=== PATIENT | male | born 1985 | race Caucasian/White ===

== ENCOUNTER → 2019-07-06 13:02 | Outpatient (BNVA) | payer OTHER, SELFPAY | PROVIDERS: Family Provider Family Medicine; PCP Family Medicine; Visit Provider Nurse Practitioner Family | DX: R05 Cough (principal) | CPT/HCPCS: 87071; 87400; 87880 ==

== ENCOUNTER → 2019-10-24 13:40 | Outpatient (BNVA) | payer OTHER, SELFPAY | PROVIDERS: Family Provider Family Medicine; PCP Family Medicine; Visit Provider Nurse Practitioner Family | DX: Z11.59 Encounter for screening for other viral diseases (principal) | CPT/HCPCS: 87635 ==

== ENCOUNTER → 2019-10-29 14:20 | Outpatient (BNVA) | payer OTHER, SELFPAY | PROVIDERS: Family Provider Family Medicine; PCP Family Medicine; Visit Provider Nurse Practitioner Family | DX: Z11.59 Encounter for screening for other viral diseases (principal) | CPT/HCPCS: 87635 ==

== ENCOUNTER → 2019-12-26 12:17 | Outpatient (BNVA) | payer OTHER, SELFPAY | PROVIDERS: Family Provider Family Medicine; PCP Family Medicine; Visit Provider Family Medicine | DX: Z11.59 Encounter for screening for other viral diseases (principal) | CPT/HCPCS: 87635 ==

== ENCOUNTER 2020-04-27 04:09 | Emergency (ER) | payer OTHER, SELFPAY ==
[2020-04-27 04:12] VITALS: BP 155/104; PULSE 134; RESP 24; TEMP 36.9; O2SAT 99; BMI 24.3
--- NOTE | 2020-04-27 04:19 | ED_ITS ---
HPI - Nausea/Vomiting/Diarrhea General: Chief complaint: Nausea/Vomiting/Diarrhea Stated complaint: nausea/vomiting/blood in vomit Time Seen by Provider: 04/27/20 04:15 Source: patient Mode of arrival: ambulatory Limitations: no limitations History of Present Illness: HPI Narrative: 35-year-old male states he has a long history of GI issues states started having vomiting and diarrhea tonight. He states he vomited 3-4 times last time he vomited roughly a teaspoon of blood. He has abdominal cramping denies any other pain. Denies any fevers. Denies any worsening or improving factors. Denies any fever or cough. Associated nausea: Yes Associated symtoms: Reports nausea; Denies chest pain, dysuria or headache(s) Review of Systems Const: Denies: fever(s), chills, body aches or change in appetite Eyes: Denies: blurry vision or eye discomfort ENMT: Denies: throat pain or dental pain Card: Denies: chest pain Resp: Denies: dyspnea GI: Reports: nausea, vomiting and hematemesis : Denies: dysuria Musc: Denies: neck pain or back pain Skin/Breast: Denies: rash Neuro: Denies: headache(s) Psych: Denies: depression Elpidio/Lymph: Denies: easy bruising All/Imm: Denies: urticaria PFSH ED PFSH: Medical History (Updated 04/27/20 @ 05:15 by Odalis Ibrahim MD) GERD (gastroesophageal reflux disease) Migraines Surgical History No pertinent past surgical history Family History Other Cancer Social History Smoking and tobacco status: current every day smoker cigarettes Packs smoked per day: 0.5 Alcohol intake: never Physical Exam Const: COMMON NORMALS: no acute distress, patient oriented x3 and healthy appearing HENMT: COMMON NORMALS: normocephalic and atraumatic HEAD & SCALP: normocephalic and atraumatic Eye: COMMON NORMALS: Equal, round and reactive pupils present and EOMs intact bilaterally PUPIL: Yes Equal, round and reactive pupils present Neck/C-Spine: COMMON NORMALS: full ROM and supple Chest: COMMONS NORMALS: normal inspection of the chest and normal palpation of entire chest wall Resp: COMMON NORMALS: normal respiratory effort, No retractions, No use of accessory muscles and clear to auscultation bilaterally AUSCULTATION: clear to auscultation bilaterally Cardio: COMMON NORMALS: regular rate, regular rhythm and No murmurs present (Cardio) RATE: regular rate RHYTHM: regular rhythm GI: COMMON NORMALS: Normal to inspection, nondistended, normoactive bowel sounds present, Soft to palpation, non-tender and no masses PALPATION: Yes Soft to palpation Extremity: COMMON NORMALS: normal to inspection and full ROM Neuro: COMMON NORMALS: patient oriented x3, moves all extremities and no focal motor deficits Psych: COMMON NORMALS: mental status grossly normal, Normal thought process present and cooperative THOUGHT PROCESS: Normal thought process present Skin: COMMON NORMALS: no rashes or lesions noted and no wounds GENERAL SKIN EXAM: no rashes or lesions noted Course Vital Signs: Vital signs: Vital Signs Temperature 98.4 F 04/27/20 04:12 Pulse Rate 80 04/27/20 04:56 Respiratory Rate 19 H 04/27/20 04:56 Blood Pressure 126/97 04/27/20 04:56 Pulse Oximetry 99 04/27/20 04:56 MDM - Nausea/Vomiting/Diarrhea MDM Narrative: Medical decision making narrative: Pernell presents here with vomiting that is chronic in nature. He has had episodes of sounds like cyclical vomiting in the past as well. He did have one episode of vomiting blood but I believe it is likely a minor mildly Kendrick tear. He feels much improved after IV fluids and Zofran and Ativan. His heart rate is improved as well. His blood work is normal. Abdominal exam has no tenderness. He is stable for discharge and is to follow-up his PCP and return if worsening. Lab Data: Labs: Lab Results 04/27/20 04/27/20 Range/Units 04:30 04:30 WBC 8.2 (4.0-10.0) 10^3/ uL RBC 6.02 H (4.1-5.3) 10^6/u L Hgb 17.9 H (11.7-16.6) g/dL Hct 52.8 H (42.0-52.0) % MCV 87.7 (80-94) fL MCH 29.7 (28.0-34.0) pg MCHC 33.9 (30.0-36.0) g/dL RDW 11.7 L (12.1-15.1) % Plt Count 269 (130-400) 10^3/c mm MPV 9.7 (7.4-10.4) fL Neut % (Auto) 54.6 % Lymph % (Auto) 30.9 % [place] % (Auto) 10.9 % Eos % (Auto) 2.8 % Baso % (Auto) 0.4 % Neut # (Auto) 4.47 (1.8-7.7) 10^3/u L Lymph # (Auto) 2.5 (0.8-4.8) 10^3/u L [place] # (Auto) 0.9 (0.2-0.9) 10^3/u L Eos # (Auto) 0.2 (0.0-0.8) 10^3/u L Baso # (Auto) 0.0 (0.0-0.1) 10^3/u L Nucleated RBC % (a uto) 0 % Nucleated RBCs # 0.0 /100WBC Sodium 139 (136-145) mmol/L Potassium 3.7 (3.5-5.1) mmol/L Chloride 102 (98-107) mmol/L Carbon Dioxide 24 (22-29) mmol/L Anion Gap 16.7 (5-19) BUN 15 (6-20) mg/dL Creatinine 1.0 (0.7-1.2) mg/dL GFR Calculation 85.5 L (90-130) mL/min Glucose 113 (65-115) mg/dL Calculated Osmolal ity 290 (285-295) mOsm/k g Calcium 9.8 (8.5-10.5) mg/dL Total Bilirubin 0.4 (0.15-1.2) mg/dL AST 19 (0-40) U/L ALT 40 (0-41) U/L Alkaline Phosphata se 53 (40-130) IU/L Total Protein 10.8 H (6.6-8.7) g/dL Albumin 4.9 (3.5-5.2) g/dL Globulin 5.9 H (1.3-4.6) g/dL Lipase 27 (13-60) U/L Discharge Plan Discharge Patient Disposition: Home Clinical Impression: Vomiting Qualifiers: Vomiting type: unspecified Vomiting Intractability: non-intractable Nausea presence: with nausea Qualified Code(s): R11.2 - Nausea with vomiting, unspecified Condition: Stable Prescriptions: No Action pantoprazole [Protonix] 40 mg tablet,delayed release (DR/EC) 40 mg PO BID Qty: 180 RF: 1 ondansetron 8 mg tablet,disintegrating 8 mg PO Q8H PRN (Reason: nausea and vomiting) Qty: 30 RF: 2 hydrocodone-acetaminophen [[place]] 5-325 mg tablet 1 tab PO Q6H PRN (Reason: pain) 7 Days Qty: 20 RF: 0 Discharge Orders: Discharge ED (Routine); Ordered 04/27/20 Ordered By: Odalis Ibrahim Referrals: Tosin Peters DO [Primary Care Provider] - 1-3 days Discharge Diet: Advance as tolerated Discharge Activity: Resume usual activity Patient Instructions: Acute Nausea and Vomiting (ED) Coding Level of Care Code ED Vendor Representatives for Chg Fwd Exam Comprehensive
[2020-04-27] MEDS: ondansetron 2 mg/ML SDV 2 mL 4 MG IVP (04:32)
[2020-04-27] MEDS: sodium chloride 0.9% 1,000 ML 999 ML IV ×2 (04:32→05:22)
[2020-04-27 04:40] LABS: Basophils % 0.4 %; Eosinophils # 0.2 10^3/uL (0.0-0.8); Eosinophils % 2.8 %; Hematocrit 52.8 % (42.0-52.0); Hemoglobin 17.9 g/dL (11.7-16.6); Lymphocytes # 2.5 10^3/uL (0.8-4.8); Lymphocytes % 30.9 %; Mean Corpuscular HGB Conc 33.9 g/dL (30.0-36.0); Mean Corpuscular Hemoglobin 29.7 pg (28.0-34.0); Mean Corpuscular Volume 87.7 fL (80-94); Mean Platelet Volume 9.7 fL (7.4-10.4); Monocytes # 0.9 10^3/uL (0.2-0.9); Monocytes % 10.9 %; Neutrophils # 4.47 10^3/uL (1.8-7.7); Neutrophils % 54.6 %; Nucleated Red Blood Cells % 0 %; Platelet Count 269 10^3/cmm (130-400); Red Blood Count 6.02 10^6/uL (4.1-5.3); Red Cell Distribution Width 11.7 % (12.1-15.1); White Blood Count 8.2 10^3/uL (4.0-10.0)
[2020-04-27 04:54] VITALS: RESP 18; O2SAT 98
[2020-04-27] MEDS: morphine 4 mg/mL SDV 1 mL IVP (04:54)
[2020-04-27 04:55] LABS: Alanine Aminotransferase 40 U/L (0-41); Albumin Level 4.9 g/dL (3.5-5.2); Alkaline Phosphatase 53 IU/L (40-130); Anion Gap 16.7 (5-19); Aspartate Amino Transferase 19 U/L (0-40); Blood Urea Nitrogen 15 mg/dL (6-20); Calcium 9.8 mg/dL (8.5-10.5); Carbon Dioxide 24 mmol/L (22-29); Chloride 102 mmol/L (98-107); Glomerular Filtration Rate 85.5 mL/min (90-130); Glucose 113 mg/dL (65-115); Lipase 27 U/L (13-60); Osmolality Calculated 290 mOsm/kg (285-295); Potassium 3.7 mmol/L (3.5-5.1); Sodium 139 mmol/L (136-145); Total Bilirubin 0.4 mg/dL (0.15-1.2)
[2020-04-27 04:56] VITALS: BP 126/97; PULSE 80; RESP 19; O2SAT 99
[2020-04-27] MEDS: LORazepam 2 mg/mL INJ 1 mL 1 MG IVP (05:19)
[2020-04-27 06:11] VITALS: BP 143/98; PULSE 97; RESP 18; O2SAT 96
[2020-04-27 15:54] LABS: Total Protein 7.9 g/dL (6.6-8.7)
== END 2020-04-27 06:11 | disposition home or self-care (01) ==
PROVIDERS: Emergency Provider Emergency Medicine; PCP Family Medicine
DX: R11.2 Nausea with vomiting, unspecified (principal); F17.210 Nicotine dependence, cigarettes, uncomplicated; K21.9 Gastro-esophageal reflux disease without esophagitis
CPT/HCPCS: 12345; 80053; 83690; 85025; 96361; 96374; 96375; 99283; J2060; J2270; J2405; J7030

== ENCOUNTER 2020-11-09 15:26 | Outpatient (CLI) | payer OTHER, SELFPAY ==
--- NOTE | 2020-11-09 | CT_ITS ---
WS: [id number] CT HEAD NONCONTRAST HISTORY: Persistent headaches. TECHNIQUE: Contiguous axial imaging performed through the brain in 2.5 mm imaging. Bone and soft tiss ue windows. All CT scans at [facility] use at least one of these dose optimization techniq ues: automated exposure control; mA and/or kV adjustment per patient size (includes targeted exams wh ere dose is matched to clinical indication); or iterative reconstruction. DLP: 1058.18 mGy-cm. COMPARISON: None available. No acute intracranial hemorrhage, midline shift or mass effect. No atrophy or prior infarcts or herniation. Ventricles: Normal size with no hydrocephalus. Paranasal sinuses: As visualized are clear. Mastoid air cells: Well pneumatized. Calvarium and scalp: Skull is intact with no soft tissue edema or swelling. CT/CT head wo con* [id number] IMPRESSION: Negative head CT.
== END 2020-11-09 15:27 | disposition home or self-care (01) ==
PROVIDERS: PCP Family Medicine Adult Medicine; Visit Provider Family Medicine Adult Medicine
DX: G44.52 New daily persistent headache (NDPH) (principal)
CPT/HCPCS: 70450

== ENCOUNTER → 2020-11-24 09:46 | Outpatient (BNVA) | payer OTHER, SELFPAY | PROVIDERS: PCP Family Medicine Adult Medicine; Visit Provider Specialist | DX: G43.709 Chronic migraine without aura, not intractable, without status migrainosus (principal); F17.210 Nicotine dependence, cigarettes, uncomplicated | CPT/HCPCS: 99204 ==

== ENCOUNTER 2022-09-25 23:04 | Emergency (ER) | payer OTHER, SELFPAY ==
[2022-09-25 23:08] VITALS: BP 123/80; PULSE 93; RESP 22; TEMP 36.4; O2SAT 99; BMI 24.5
--- NOTE | 2022-09-26 00:25 | CTR_ITS ---
PROCEDURE INFORMATION: Exam: CT Abdomen And Pelvis Without Contrast Exam date and time: 09/26/2022 12:49 AM Age: 37 years old Clinical indication: Other: Mib back/bilat flank; Patient HX: C/O mid back/bilat flank pain. History of stones. ; Additional info: Mid back pain, HX of stones TECHNIQUE: Imaging protocol: Computed tomography of the abdomen and pelvis without contrast. Radiation optimization: All CT scans at this facility use at least one of these dose optimization techniques: automated exposure control; mA and/or kV adjustment per patient size (includes targeted exams where dose is matched to clinical indication); or iterative reconstruction. REPORTING DATA: Count of CT and Cardiac NM exams in prior 12 months: This patient has received 0 known CTs and 0 known cardiac nuclear medicine studies in the 12 months prior to the current study. COMPARISON: CT Abdomen/Pelvis w IV* [id number] 03/11/2019 10:52 PM RADIATION DOSE METRICS: Total DLP (mGy-cm): 722.77 FINDINGS: Liver: Normal. No mass. Gallbladder and bile ducts: Normal. No calcified stones. No ductal dilation. Pancreas: Normal. No ductal dilation. Spleen: Normal. No splenomegaly. Adrenal glands: Normal. No mass. Kidneys and ureters: Normal. No hydronephrosis. Stomach and bowel: Unremarkable. No obstruction. No mucosal thickening. Appendix: No evidence of appendicitis. Intraperitoneal space: Edema in the central abdominal mesentery with prominent subcentimeter lymph nodes, similar to prior exam may reflect a chronic inflammatory process such as sclerosing mesenteritis. Vasculature: Unremarkable. No abdominal aortic aneurysm. Lymph nodes: Unremarkable. No enlarged lymph nodes. Urinary bladder: Unremarkable as visualized. Reproductive: Unremarkable as visualized. Bones/joints: Unremarkable. No acute fracture. Soft tissues: Unremarkable. Other findings: Bilateral punctate non-obstructing calyceal stones. Bilateral punctate non-obstructing calyceal stones. CT/CT kidney stone [id number] IMPRESSION: 1. Negative for focal acute appearing inflammatory process the abdomen or pelvis. 2. Bilateral punctate non-obstructing calyceal stones. 3. Edema in the central abdominal mesentery with prominent subcentimeter lymph nodes, similar to prior exam may reflect a chronic inflammatory process such as sclerosing mesenteritis. 4. Bilateral punctate non-obstructing calyceal stones.
[2022-09-26 00:40] LABS: Basophils # 0.1 10^3/uL (0.0-0.1); Basophils % 0.6 %; Eosinophils # 0.3 10^3/uL (0.0-0.8); Eosinophils % 3.6 %; Lymphocytes # 2.9 10^3/uL (0.8-4.8); Lymphocytes % 30.2 %; Mean Corpuscular Hemoglobin 29.6 pg (28.0-34.0); Mean Corpuscular Volume 86.9 fl (80-94); Mean Platelet Volume 9.4 fL (7.4-10.4); Monocytes % 10.3 %; Neutrophils # 5.27 10^3/uL (1.8-7.7); Neutrophils % 55.1 %; Nucleated Red Blood Cells % 0 %; Platelet Count 286 10^3/cmm (130-400); Red Blood Count 5.41 10^6/uL (4.1-5.3); Red Cell Distribution Width 11.7 % (12.1-15.1); White Blood Count 9.6 10^3/uL (4.0-10.0)
[2022-09-26 00:44] LABS: Erythrocyte Sedimentation Rate < 1 mm/hr (0-10)
[2022-09-26] MEDS: sodium chloride 0.9% 1,000 ML 999 ML IV (00:45)
[2022-09-26] MEDS: ondansetron 2 mg/ML SDV 2 mL 4 MG IVP (00:48)
[2022-09-26] MEDS: ketorolac 30 mg/mL INJ IVP (00:48)
[2022-09-26 01:01] LABS: Alanine Aminotransferase 36 U/L (0-41); Albumin Level 4.7 g/dL (3.5-5.2); Alkaline Phosphatase 63 U/L (40-130); Anion Gap 15.9 (5-19); Aspartate Amino Transferase 17 U/L (0-40); Blood Urea Nitrogen 13 mg/dL (6-20); Carbon Dioxide 24 mmol/L (22-29); Chloride 102 mmol/L (98-107); Globulin 3.1 g/dL (1.3-4.6); Glomerular Filtration Rate 109.4 mL/min (90-130); Glucose 93 mg/dL (65-115); Lipase 25 U/L (13-60); Osmolality Calculated 286 mOsm/kg (285-295); Potassium 3.9 mmol/L (3.5-5.1); Sodium 138 mmol/L (136-145); Total Bilirubin 0.4 mg/dL (0.15-1.2); Total Protein 7.8 g/dL (6.6-8.7)
[2022-09-26 01:34] LABS: Urine Appearance Hazy (CLEAR); Urine Color Yellow (Yellow)
[2022-09-26 01:35] LABS: Add Urine Microscopic? YES; Bilirubin Urine Neg (Negative); Ketones Urine Negative (Negative); Urobilinogen Urine Norm (Negative)
[2022-09-26] MEDS: cefTRIAXone 1,000 MG in sodium chloride 0.9% (plus) 50 ML 100 MG IV (02:06)
[2022-09-26 02:43] VITALS: BP 126/79; PULSE 68; RESP 14; O2SAT 96
[2022-09-26 02:44] VITALS: BP 126/79; PULSE 68; RESP 14; O2SAT 96
--- NOTE | 2022-09-26 02:52 | ED_ITS ---
HPI - Back Pain/Injury General: Chief Complaint: Back Pain/Injury Stated Complaint: Back pain Time Seen by Provider: 09/26/22 00:49 Source: patient Mode of arrival: ambulatory Limitations: no limitations History of Present Illness: Patient presents emergency department today for evaluation and treatment of sudden, sharp mid back pain. Patient states that while sleeping he was suddenly woken up by severe mid back pain. He reports nausea but no vomiting. He has a history of kidney stones but reports it has been quite sometime since he has had 1. He also notes chronic, recurrent issues with abdominal pain and vomiting for which she has been seen and evaluated multiple times without definitive findings. He reports upper and lower GI scopes where he was diagnosed with reflux. He states he does take Protonix as needed for increased in reflux symptoms. Patient also states he has been ill over the last week or so with flulike illness . He reports that to others at home have had similar illness. He denies dysuria, penile discharge, testicular pain or scrotal swelling. He has not seen any blood in his urine. Review of Systems General: Reports: 10 or more systems reviewed and unremarkable except in HPI and below PFSH ED PFSH: Medical History Anxiety and depression Chronic migraine without aura Contact dermatitis Encounter for screening laboratory testing for COVID-19 virus GERD (gastroesophageal reflux disease) Surgical History No pertinent past surgical history Family History Other Cancer Social History Alcohol intake: never Substance/Drug Use: never Marital status: Number of children: 2 Number of grandchildren: 0 Current occupational status: employed Current occupation: [employer] Physical Exam Const: COMMON NORMALS: patient oriented x3 and alert OTHER: Patient is pleasant and social and answers his own history but is constantly pacing around the room and constantly changing positions in an effort to be more comfortable. HENMT: COMMON NORMALS: normocephalic, atraumatic, hearing grossly normal bilaterally and moist oral mucous membranes HEAD & SCALP: normocephalic and atraumatic Eye: COMMON NORMALS: Equal, round and reactive pupils present, EOMs intact bilaterally and conjunctivae normal CONJUNCTIVA: Yes conjunctivae normal PUPIL: Yes Equal, round and reactive pupils present Neck/C-Spine: COMMON NORMALS: full ROM and no JVD Lymph: LYMPHATIC: no lymphadenopathy noted Resp: COMMON NORMALS: normal respiratory effort, No retractions, No use of accessory muscles and clear to auscultation bilaterally AUSCULTATION: clear to auscultation bilaterally Cardio: COMMON NORMALS: no JVD, regular rate and regular rhythm RATE: regular rate RHYTHM: regular rhythm Back/Pelvis: COMMON NORMALS: no thoracic nor lumbar tenderness and thoraco- lumbar ROM normal OTHER: Patient has midthoracic back pain bilaterally on examination. Extremity: COMMON NORMALS: normal to inspection, full ROM and capillary refill normal Neuro: COMMON NORMALS: patient oriented x3 SENSORIUM/ORIENTATION: Yes alert Psych: COMMON NORMALS: mental status grossly normal, Normal thought process present, cooperative, normal affect and activity/motor behavior normal THOUGHT PROCESS: Normal thought process present Skin: COMMON NORMALS: no rashes or lesions noted and no wounds GENERAL SKIN EXAM: no rashes or lesions noted Course Vital Signs: Vital signs: Vital Signs Temperature 97.6 F 09/25/22 23:08 Pulse Rate 68 09/26/22 02:44 Respiratory Rate 14 09/26/22 02:44 Blood Pressure 126/79 09/26/22 02:44 Pulse Oximetry 96 09/26/22 02:44 Oxygen Delivery Me thod Room Air 09/26/22 02:43 MDM - Back Pain/Injury Medical Decision Making Patient presents to the ER today for what sounds like kidney stone pain. Patient is unable to get comfortable and is constantly moving and changing positions. He is also had nausea but no vomiting. Patient's pain is located to the mid thoracic region bilaterally but has no flank or abdominal pain reported. Lab work was generally unremarkable but we did proceed with a CT for renal stone protocol given his previous history. CT did show renal stones but no active passing stone or signs of hydronephrosis concerning for recent occlusive stone. Patient had findings of edema in the central abdominal mesentery which has appeared in previous evaluations. Radiology does indicate it appears chronic inflammatory and discussed the possibility of a sclerosing mesenteritis. I did discuss this with the patient and he kind of laughed and indicated that he had heard this possibility before. He also reports he has had multiple arik luations for further investigation into this finding without any acute diagnoses. Patient's urinalysis shows a significant amount of bacteria, blood, white blood cells, and nitrites. He also has quite a bit of glucose but no ketones. Patient was treated with a gram of Rocephin IV here in the emergency department with ciprofloxacin provided has a prescription to be picked up and continued in the morning. We will run a urine culture on the specimen for further evaluation. Patient was given strict return precautions for change or worsening in his condition including inability to tolerate fluids, spike in fever, change or worsening of his pain, or any genital symptoms. Patient verbalized understanding and agreement to treatment plan. Differential Diagnosis Likely strain of lumbar region, renal colic, pyelonephritis and thoracic back pain Labs 09/26/22 00:33 09/26/22 00:33 Radiology Impressions Abdomen/Pelvis CT 09/26/22 00:25 IMPRESSION: 1. Negative for focal acute appearing inflammatory process the abdomen or pelvis. 2. Bilateral punctate non-obstructing calyceal stones. 3. Edema in the central abdominal mesentery with prominent subcentimeter lymph nodes, similar to prior exam may reflect a chronic inflammatory process such as sclerosing mesenteritis. 4. Bilateral punctate non-obstructing calyceal stones. ADDENDUM: 09/26/22 0117 Under kidneys and ureters under findings, the text should read bilateral punctate nonobstructing renal calyceal stones. Laboratory Results WBC 9.6 10^3/uL (4.0-10.0) 09/26/22 00:33 RBC 5.41 10^6/uL (4.1-5.3) H 09/26/22 00:33 Hgb 16.0 g/dL (11.7-16.6) 09/26/22 00:33 Hct 47.0 % (42.0-52.0) 09/26/22 00:33 MCV 86.9 fl (80-94) 09/26/22 00:33 MCH 29.6 pg (28.0-34.0) 09/26/22 00: MCHC 34.0 g/dL (30.0-36.0) 09/26/22 00:33 RDW 11.7 % (12.1-15.1) L 09/26/22 00:33 Plt Count 286 10^3/cmm (130-400) 09/26/22 00:33 MPV 9.4 fL (7.4-10.4) 09/26/22 00:33 Neut % (Auto) 55.1 % 09/26/22 00:33 Lymph % (Auto) 30.2 % 09/26/22 00:33 [place] % (Auto) 10.3 % 09/26/22 00:33 Eos % (Auto) 3.6 % 09/26/22 00:33 Baso % (Auto) 0.6 % 09/26/22 00:33 Neut # (Auto) 5.27 10^3/uL (1.8-7.7) 09/26/22 00:33 Lymph # (Auto) 2.9 10^3/uL (0.8-4.8) 09/26/22 00:33 [place] # (Auto) 1.0 10^3/uL (0.2-0.9) H 09/26/22 00:33 Eos # (Auto) 0.3 10^3/uL (0.0-0.8) 09/26/22 00:33 Baso # (Auto) 0.1 10^3/uL (0.0-0.1) 09/26/22 00:33 Nucleated RBC % (auto) 0 % 09/26/22 00: Nucleated RBCs # 0.0 /100WBC 09/26/22 00:33 ESR < 1 mm/hr (0-10) 09/26/22 00:33 Sodium 138 mmol/L (136-145) 09/26/22 00:33 Potassium 3.9 mmol/L (3.5-5.1) 09/26/22 00:33 Chloride 102 mmol/L (98-107) 09/26/22 00:33 Carbon Dioxide 24 mmol/L (22-29) 09/26/22 00:33 Anion Gap 15.9 (5-19) 09/26/22 00:33 BUN 13 mg/dL (6-20) 09/26/22 00:33 Creatinine 0.8 mg/dL (0.7-1.2) 09/26/22 00:33 GFR Calculation 109.4 mL/min (90-130) 09/26/22 00:33 Glucose 93 mg/dL (65-115) 09/26/22 00:33 Calculated Osmolality 286 mOsm/kg (285-295) 09/26/22 00:33 Calcium 10.0 mg/dL (8.5-10.5) 09/26/22 00:33 Total Bilirubin 0.4 mg/dL (0.15-1.2) 09/26/22 00:33 AST 17 U/L (0-40) 09/26/22 00:33 ALT 36 U/L (0-41) 09/26/22 00:33 Alkaline Phosphatase 63 U/L (40-130) 09/26/22 00:33 C-Reactive Protein 3.0 mg/L (0.0-4.9) 09/26/22 00:33 Total Protein 7.8 g/dL (6.6-8.7) 09/26/22 00:33 Albumin 4.7 g/dL (3.5-5.2) 09/26/22 00:33 Globulin 3.1 g/dL (1.3-4.6) 09/26/22 00:33 Lipase 25 U/L (13-60) 09/26/22 00:33 Urine Color Yellow (Yellow) 09/26/22 01:15 Urine Appearance Hazy (CLEAR) A 09/26/22 01:15 Urine pH 6 (5-7) 09/26/22 01:15 Ur Specific [place] 1.010 (1.005-1.030) 09/26/22 01:15 Urine Protein Trace (Negative) 09/26/22 01:15 Urine Glucose (UA) 4+ (Normal) H 09/26/22 01:15 Urine Ketones Negative (Negative) 09/26/22 01:15 Urine Blood 3+ (Negative) H 09/26/22 01:15 Urine Nitrate Positive (Negative) H 09/26/22 01:15 Urine Bilirubin Neg (Negative) 09/26/22 01:15 Urine Urobilinogen Norm mg/dL (Negative) 09/26/22 01:15 Ur Leukocyte Esterase 2+ (Negative) H 09/26/22 01:15 Urine RBC Too numerous to cnt /hpf (0-2) H 09/26/22 01:15 Urine WBC 25-40 /hpf (0-5) H 09/26/22 01:15 Ur Squamous Epith Cells 0-4 /hpf (0-5) H 09/26/22 01:15 Amorphous Sediment Not Reportable 09/26/22 01:15 Urine Bacteria 3+ /hpf (NONE) H 09/26/22 01:15 Discharge Plan Discharge Patient Disposition: Home Clinical Impression: Mid-back pain, acute, Acute UTI (urinary tract infection) Condition: Stable Prescriptions: New Reglan 10 mg tablet 10 mg PO Q6H 7 Days Qty: 28 0RF ciprofloxacin HCl 500 mg tablet 500 mg PO Q12H 7 Days Qty: 14 0RF No Action sertraline 50 mg tablet 50 mg PO DAILY Qty: 30 1RF Rx Instructions: take one each am and if makes sleepy then take it in pm, only one daily topiramate 25 mg tablet 25 mg PO DAILY Qty: 30 1RF acetaminophen [Tylenol] 325 mg tablet 325 mg PO QID PRN ibuprofen 200 mg tablet 200 mg PO Q6H PRN ondansetron 8 mg tablet,disintegrating 8 mg PO Q8H PRN (Reason: nausea and vomiting) Qty: 30 2RF pantoprazole [Protonix] 40 mg tablet,delayed release (DR/EC) 40 mg PO BID Qty: 180 1RF Discharge Orders: Discharge ED (Routine); Ordered 09/26/22 Ordered By: Roxanne Carmona Referrals: Liam Marte MD [Primary Care Provider] - Discharge Diet: Usual diet Activity Restrictions/Additional Instructions: Evaluation today revealed significant findings of infection in your urine. You have a significant amount of blood, white blood cells, bacteria, and nitrites. Incidentally you had quite a bit of glucose in your urine but no ketones. CT examination revealed no active stone disease but you do have retained renal stones bilaterally. There is again findings of upper abdominal haziness in the mesentery and they did mention the possibility for chronic inflammatory disease such as sclerosing mesenteritis. I do recommend reaching out to your primary care doctor to make them aware of this CT evaluation and, recommend you have a repeat of your urinalysis performed after you complete your course of antibiotics to make sure there is been full resolution of all your urinary fin dings. I have also asked that they culture your urine to evaluate for the bacterial cause and to assure proper antibiotic coverage. We provided you a first dose of antibiotics through your IV here in the emergency department and have sent a prescription with you at discharge to be filled in the morning and continued as prescribed. Continue to monitor your symptoms at home and return to the ER for any acute worsening. Coding Level of Care Code ED Casey Saw Operator for Rui Raphael
[2022-09-26 09:40] LABS: pH Urine 6.5 (5-7)
[2022-09-26 09:41] LABS: Blood Urine Neg (Negative); Glucose Urine UA Norm (Normal); Nitrate Urine Negative (Negative); Protein Urine Neg (Negative); Specific Gravity, Urine 1.015 (1.005-1.030)
[2022-09-26 09:42] LABS: Leukocyte Esterase Urine Negative (Negative)
[2022-09-26 09:53] LABS: Bacteria Urine TRACE /hpf
[2022-09-26 09:54] LABS: Add Urine Culture? No
== END 2022-09-26 02:41 | disposition home or self-care (01) ==
PROVIDERS: Emergency Provider Physician Assistant; PCP Family Medicine Adult Medicine
DX: M54.6 Pain in thoracic spine (principal); N39.0 Urinary tract infection, site not specified
CPT/HCPCS: 74176; 80053; 81001; 83690; 85025; 85651; 86140; 96365; 96375; 99285; J0696; J1885; J2405; J7030

== ENCOUNTER → 2022-12-05 10:16 | Outpatient (BNVA) | payer OTHER, SELFPAY | PROVIDERS: PCP Family Medicine Adult Medicine; Visit Provider Registered Nurse Neonatal Intensive Care | DX: J02.9 Acute pharyngitis, unspecified (principal) | CPT/HCPCS: 87880 ==

== ENCOUNTER 2023-05-01 07:40 | Observation (INO) | payer SELFPAY ==
[2023-05-01] VITALS (36 sets, daily range): BP systolic 100–147; BP diastolic 53–110; PULSE 50–150; RESP 13–28; TEMP 36.4–36.9; O2SAT 92–100; BMI 24.3
--- NOTE | 2023-05-01 07:43 | ECG_ITS ---
[facility] Test Date: 2023-05-01 Pat Name: Pernell Dumas Department: Room: Gender: Male [employer] Consultant: : 1985 Requested By: Roel Mustafa Order Number: [id number] [place] MD: Pat Morelos M.D. Measurements Intervals Marshall Rate: 153 P: 209 NE: 81 QRS: 44 QRSD: 92 T: 38 QT: 290 QTc: 463 Interpretive Statements Sinus tachycardia Normal ST Ts Electronically Signed On 05-01-2023 19:27:03 INDUSTRIAL TECHNOLOGY TEACHER by Pat Morelos M.D. [id number]
--- NOTE | 2023-05-01 07:43 | XR_ITS ---
WS: [id number] PORTABLE CHEST HISTORY: Chest pain COMPARISON: 09/03/2017 Lungs are clear and well expanded. No pleural effusion or pneumothorax. Cardiac size: Normal. Mediastinum/Aorta: Normal mediastinum. No osseous abnormality seen. IMPRESSION: Unremarkable portable chest.
--- NOTE | 2023-05-01 07:51 | ED_ITS ---
HPI - Chest Pain 2 General: Chief Complaint: Chest Pain Stated Complaint: chest pains,n,v,dizzy Time Seen by Provider: 05/01/23 07:42 History of Present Illness: 38-year-old male presents emergency depa rtment stating that he woke up at approximately 6 AM this morning with some right-sided chest pain he felt nausea and and had a single episode of vomiting. He states the pain in his chest is a burning type pain he states that he feels like his heart is skipping beats and going extremely fast. He denies alcohol use. Associated symptoms: Reports palpitations Review of Systems 2 General: Reports: 10 or more systems reviewed and unremarkable except in HPI and below Card: Reports: chest pain and palpitations PFS ED 2 PFSH: Medical History (Updated 05/01/23 @ 10:10 by Pee Aj MD) History of kidney stones Anxiety and depression Chronic migraine without aura Encounter for screening laboratory testing for COVID-19 virus Contact dermatitis GERD (gastroesophageal reflux disease) Surgical History No pertinent past surgical history Family History Other Cancer Social History (Updated 05/01/23 @ 10:10 by Pee Aj MD) Smoking and tobacco/nicotine status: current every day tobacco/nicotine user cigarettes Packs smoked per day: 0.5 Alcohol intake: never Substance/Drug Use: never Marital status: Number of children: 2 Number of grandchildren: 0 Current occupational status: employed Current occupation: [employer] Physical Exam 2 Narrative: EXAM NARRATIVE: Constitutional: the patient appears well nourished and with normal development. Vital signs reviewed as documented. HENMT: Normocephalic, atraumatic. External ears normal appearance without drainage. Nose without drainage, normal appearance. Mucus membranes moist. Neck is supple, No jugular venous distension, trachea is midline, no appreciable carotid bruits. No lymphadenopathy. No meningeal signs. Flexion, extension and lateral rotation is without pain. Eyes: Pupils are equal, round, reactive to light and accommodation. No scleral icterus. Extra-ocular movement are intact. Thorax is symmetrical and with equal rise and fall with respirations. Resp: Lungs are clear to auscultation. No wheezes, rales, crackles or ronchi at present. Cardio: Regular rate and rhythm. Positive S1, S2. No appreciable murmurs, rubs or gallops. GI: Abdominal exam reveals normal bowel sounds to all quadrants. No organomegaly. No obvious palpable masses noted. No hepatomegally appreciated. Soft, non-tender to palpation. Extremity: Extremities are non-edematous and both femoral and pedal pulses are 2+ and equal bilaterally. Moves all extremities well, sensation in all extremities. Neuro: Alert and oriented x4, person, place, time and situation. Cranial nerves II through XII are grossly intact, there is no focal neurological deficits that I can appreciate at present. Motor strength in the upper and lower extremities are equal and bilateral 5/5. Psych: Cooperative, calm, normal thought process, appropriate judgment. Skin: No lesions, rashes. No gross abnormalities noted. Back: Symmetrical, no obvious deformity, No CVA tenderness Course 2 Reevaluation(s): Reevaluation #1: Chest pain resolved, currently Cardizem drip at 10 mg/h, blood pressure 133/91 heart rate sinus rhythm at 88 I did advise the patient he would be admitted to the hospital and contacted Dr. Aj the hospital physician who accepted the patient. Time: 10:12 Vital Signs: Vital signs: Vital Signs Temperature 97.5 F L 05/01/23 07:46 Pulse Rate 98 05/01/23 09:30 Respiratory Rate 20 H 05/01/23 07:46 Blood Pressure 132/82 05/01/23 09:30 Pulse Oximetry 95 05/01/23 09:30 Oxygen Delivery Me thod Room Air 05/01/23 09:30 MDM - Chest Pain Medical Decision Making Physical exam completed and documented patient presents with SVT and no history of SVT. He states he also had chest pain. I will obtain a CBC, CMP serial cardiac enzymes and twelve-lead EKG as well as a chest x-ray. I will provide him Cardizem IV push and start him on a Cardizem drip to slow his heart rate down. Given his concerns of a dull burning and tearing sensation to the back I will do a CTA to rule out dissection. Medical Records I reviewed the patient's medical records. Lab Data I reviewed the patient's lab results. 05/01/23 07:55 05/01/23 07:55 Laboratory Results WBC 8.63 10^3/uL (3.29-11.43) 05/01/23 07:55 RBC 5.87 10^6/uL (3.85-5.65) H 05/01/23 07:55 Hgb 18.10 g/dL (11.27-16.99) H 05/01/23 07:55 Hct 50.1 % (37-53) 05/01/23 07:55 MCV 85.3 fl (82-101) 05/01/23 07:55 MCH 30.8 pg (27-33) 05/01/23 07:55 MCHC 36.1 g/dL (30-55) 05/01/23 07:55 RDW 11.9 % (12.1-15.1) L 05/01/23 07:55 Plt Count 285 10^3/cmm (157-399) 05/01/23 07:55 MPV 9.9 fL (7.4-10.4) 05/01/23 07:55 Neut % (Auto) 47.7 % 05/01/23 07:55 Lymph % (Auto) 36.0 % 05/01/23 07:55 [place] % (Auto) 11.6 % 05/01/23 07:55 Eos % (Auto) 3.9 % 05/01/23 07:55 Baso % (Auto) 0.6 % 05/01/23 07:55 Neut # (Auto) 4.11 10^3/uL (1.8-7.7) 05/01/23 07:55 Lymph # (Auto) 3.1 10^3/uL (0.8-4.8) 05/01/23 07:55 [place]ard # (Auto) 1.0 10^3/uL (0.2-0.9) H 05/01/23 07:55 Eos # (Auto) 0.3 10^3/uL (0.0-0.8) 05/01/23 07:55 Baso # (Auto) 0.1 10^3/uL (0.0-0.1) 05/01/23 07:55 Nucleated RBC % (auto) 0 % 05/01/23 07:55 Nucleated RBCs # 0.0 /100WBC 05/01/23 07:55 PT 12.20 SECONDS (12.1-14.9) 05/01/23 07:55 INR 0.88 (0.8-1.2) 05/01/23 07:55 Sodium 137 mmol/L (136-145) 05/01/23 07:55 Potassium 3.6 mmol/L (3.5-5.1) 05/01/23 07:55 Chloride 101 mmol/L (98-107) 05/01/23 07:55 Carbon Dioxide 22 mmol/L (22-29) 05/01/23 07:55 Anion Gap 17.6 (5-19) 05/01/23 07:55 BUN 13 mg/dL (6-20) 05/01/23 07:55 Creatinine 0.9 mg/dL (0.7-1.2) 05/01/23 07:55 GFR Calculation 95.0 mL/min (90-130) 05/01/23 07:55 Glucose 116 mg/dL (65-115) H 05/01/23 07:55 Calculated Osmolality 285 mOsm/kg (285-295) 05/01/23 07:55 Calcium 10.0 mg/dL (8.5-10.5) 05/01/23 07:55 Magnesium 2.0 mg/dL (1.7-2.3) 05/01/23 07:55 Total Bilirubin 0.3 mg/dL (0.15-1.2) 05/01/23 07:55 AST 20 U/L (0-40) 05/01/23 07:55 ALT 40 U/L (0-41) 05/01/23 07:55 Alkaline Phosphatase 76 U/L (40-130) 05/01/23 07:55 Troponin T Baseline < 6 ng/L (0-15) 05/01/23 07:55 NT-Pro-B Natriuret Pep < 36 pg/mL (0-125) 05/01/23 07:55 Total Protein 8.4 g/dL (6.6-8.7) 05/01/23 07:55 Albumin 4.8 g/dL (3.5-5.2) 05/01/23 07:55 Globulin 3.6 g/dL (1.3-4.6) 05/01/23 07:55 TSH 2.29 uIU/mL (0.27-4.20) 05/01/23 07:55 Urine Color Straw (Yellow) 05/01/23 09:32 Urine Appearance Clear (CLEAR) 05/01/23 09:32 Urine pH 6.5 (5-7) 05/01/23 09:32 Ur Specific [place] 1.010 (1.005-1.030) 05/01/23 09:32 Urine Protein Neg (Negative) 05/01/23 09:32 Urine Glucose (UA) Norm (Normal) 05/01/23 09:32 Urine Ketones Negative (Negative) 05/01/23 09:32 Urine Blood Neg (Negative) 05/01/23 09:32 Urine Nitrate Negative (Negative) 05/01/23 09:32 Urine Bilirubin Neg (Negative) 05/01/23 09:32 Urine Urobilinogen Neg mg/dL (Negative) 05/01/23 09:32 Ur Leukocyte Esterase Negative (Negative) 05/01/23 09:32 Urine Opiates Screen Negative ng/mL (Negative) 05/01/23 09:32 Ur Barbiturates Screen Negative ng/mL (Negative) 05/01/23 09:32 Ur Phencyclidine Scrn Negative ng/mL (Negative) 05/01/23 09:32 Ur Amphetamines Screen Negative ng/mL (Negative) 05/01/23 09:32 U Benzodiazepines Scrn Negative ng/mL (Negative) 05/01/23 09:32 Urine Cocaine Screen Negative ng/mL (Negative) 05/01/23 09:32 U Marijuana (THC) Screen Positive ng/mL (Negative) H 05/01/23 09:32 Influenza Type A Ag negative (Negative) 05/01/23 08:07 Influenza Type B Ag negative (Negative) 05/01/23 08:07 SARS-CoV-2 Ag (Rapid) negative (Negative) 05/01/23 08:07 All radiology interpretation(s) finalized by discharge EKG Data EKG 1: Interpretation: Twelve-lead EKG obtained at 745 and reviewed at 746 demonstrates supraventricular tachycardia with a ventricular rate of 153 bpm, OH interval 81, QRS duration 92, QT 290, QTc [address] elevation or depression at present to demonstrate acute ischemia or infarction. EKG 2: Interpretation: Repeat twelve-lead EKG at 938 demonstrates sinus rhythm with a ventricular rate of 91 bpm, OH interval 168, QRS duration 93, QT 334, QTc 382. There is no ST elevation or depression at present to demonstrate acute ischemia or infarction. Critical Care Time 2 Critical Care Time: Critical Care Time: Yes Total Critical Care Time: 45 Attestation: The patients was emergently evaluated as this patient's presentation and case had a high probability of a clinically significant, sudden, or life threatening deterioration of this patient's initial critical presentation or condition which required my full and direct attention, intervention and personal management. Discharge Plan Discharge Patient Disposition: Admitted As Inpatient Admit Provider: Pee Aj Clinical Impression: Sustained SVT, Chest pain Condition: Stable Coding Level of Care Code ED Powertrain Design Engineer for Rui Raphael
[2023-05-01] MEDS: dilTIAZem 5 mg/mL SDV 5 mL 20 MG IVP (07:57)
[2023-05-01] MEDS: aspirin 81 mg Chew Tablet 324 MG PO (07:59)
[2023-05-01 08:04] LABS: Basophils # 0.1 10^3/uL (0.0-0.1); Basophils % 0.6 %; Eosinophils # 0.3 10^3/uL (0.0-0.8); Eosinophils % 3.9 %; Hematocrit 50.1 % (37-53); Lymphocytes # 3.1 10^3/uL (0.8-4.8); Mean Corpuscular HGB Conc 36.1 g/dL (30-55); Mean Corpuscular Hemoglobin 30.8 pg (27-33); Mean Corpuscular Volume 85.3 fl (82-101); Mean Platelet Volume 9.9 fL (7.4-10.4); Monocytes % 11.6 %; Neutrophils # 4.11 10^3/uL (1.8-7.7); Neutrophils % 47.7 %; Nucleated Red Blood Cells % 0 %; Platelet Count 285 10^3/cmm (157-399); Red Blood Count 5.87 10^6/uL (3.85-5.65); Red Cell Distribution Width 11.9 % (12.1-15.1); White Blood Count 8.63 10^3/uL (3.29-11.43)
--- NOTE | 2023-05-01 08:05 | PC.NURSE ---
PT HOOKED UP TO CONTINUOUS BEDSIDE CARDIAC MONITORING.
[2023-05-01 08:14] LABS: INR 0.88 (0.8-1.2)
[2023-05-01 08:22] LABS: Troponin(5th) Baseline < 6 ng/L (0-15)
--- NOTE | 2023-05-01 08:28 | CT_ITS ---
WS: [id number] CT CHEST ANGIOGRAPHY WITH REFORMATS HISTORY: taachycardia/tearing chest pain TECHNIQUE: Contiguous axial images are obtained through the chest during arterial injection of intrav enous contrast. Images are reconstructed to evaluate the pulmonary arteries. MIP imaging also reviewe d. All CT scans at [facility] use at least one of these dose optimization techniques: automat ed exposure control; mA and/or kV adjustment per patient size (includes targeted exams where dose is matched to clinical indication); or iterative reconstruction. CONTRAST: Omnipaque 350; 57 mL IV. DLP: 438.04 mGy.cm COMPARISON: None available. Adequate opacification of the pulmonary arteries. No filling defects or pulmonary emboli are identifi ed. Partial opacification of the thoracic aorta. No dissection is evident on this examination. Contra st opacification does limit evaluation for subtle dissection. There is no aneurysm. No para-aortic he matoma. Normal appearance of the great vessels. Heart size is normal. No RIGHT heart strain. No pericardial or pleural effusions. No mediastinal or h ilar adenopathy. There is mild hazy attenuation throughout the lungs. In part this may be due to poor inspiration. There does appear to be mild tree-in-bud airspace disease diffusely and bilaterally. No consolidations. No pericardial or pleural effusions. No adrenal mass. Visualize gallbladder and spleen and liver are negative. No significant hiatal herni a. There are a few minimal compression fractures in the thoracic spine including T3, T4 and T5. IMPRESSION: 1. No pulmonary embolism. 2. Limited opacification of the thoracic aorta but no dissection or aneurysm or periaortic hematoma is identified. 3. There is mild diffuse groundglass attenuation and tree-in-bud airspace disease. Consider respirat ory bronchiolitis/pneumonitis. These may changes can be seen with smoking history or endobronchial pn eumonia. 4. No adenopathy.
[2023-05-01 08:29] LABS: Alanine Aminotransferase 40 U/L (0-41); Albumin Level 4.8 g/dL (3.5-5.2); Alkaline Phosphatase 76 U/L (40-130); Blood Urea Nitrogen 13 mg/dL (6-20); Carbon Dioxide 22 mmol/L (22-29); Chloride 101 mmol/L (98-107); Globulin 3.6 g/dL (1.3-4.6); Glucose 116 mg/dL (65-115); NT Pro B Type Natriuretic Pept < 36 pg/mL (0-125); Osmolality Calculated 285 mOsm/kg (285-295); Sodium 137 mmol/L (136-145); Total Bilirubin 0.3 mg/dL (0.15-1.2); Total Protein 8.4 g/dL (6.6-8.7)
[2023-05-01 08:31] LABS: Anion Gap 17.6 (5-19); Aspartate Amino Transferase 20 U/L (0-40); Potassium 3.6 mmol/L (3.5-5.1)
[2023-05-01 08:32] LABS: Influenza A by IFA negative (Negative); Influenza B by IFA negative (Negative); SARS Covid-2 Antigen negative (Negative)
[2023-05-01] MEDS: iohexol 350 mg/mL 500 mL Btl (per mL) IV (08:45)
--- NOTE | 2023-05-01 08:45 | PC.NURSE ---
PER DR ALEXANDRA, TARGET HEART RATE FOR CARDIZEM DRIP IS BELOW 100BPM.
[2023-05-01] MEDS: dilTIAZem 100 MG in sodium chloride 0.9% (add-van) 100 ML IV (08:49)
--- NOTE | 2023-05-01 09:15 | PC.PHAR ---
pt states he takes care of his own medications-pt states only takes protonix 40mg bid prn states he had a build up -states not taking any otc medications
[2023-05-01] MEDS: ondansetron 2 mg/ML SDV 2 mL 4 MG IVP (09:29)
--- NOTE | 2023-05-01 09:38 | ECG_ITS ---
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 Measurements Intervals [place] Rate: 91 P: 37 [place]: 168 QRS: 32 QRSD: 93 T: 47 QT: 334 QTc: 411 Interpretive Statements SINUS RHYTHM Compared to ECG 05/01/2023 07:45:14 No significant changes Electronically Signed On 05-01-2023 19:34:26 PLOW AND BORING MACHINE TENDER by Pat Morelos M.D. [id number]
[2023-05-01 09:44] LABS: Add Urine Microscopic? NO; Charge for UA Resulting for Rev
[2023-05-01 09:59] LABS: Bilirubin Urine Neg (Negative); Blood Urine Neg (Negative); Glucose Urine UA Norm (Normal); Ketones Urine Negative (Negative); Leukocyte Esterase Urine Negative (Negative); Nitrate Urine Negative (Negative); Protein Urine Neg (Negative); Urine Appearance Clear (CLEAR); Urine Color Straw (Yellow); Urobilinogen Urine Neg (Negative); pH Urine 6.5 (5-7)
[2023-05-01 10:05] LABS: Amphetamines Screen Urine Negative (Negative); Barbiturates Screen Urine Negative (Negative); Benzodiazepines Screen Urine Negative (Negative); Cocaine Screen Urine Negative (Negative); Opiate Screen Urine Negative (Negative); PCP Screen Urine Negative (Negative); THC Screen Urine Positive (Negative)
[2023-05-01 10:07] LABS: Thyroid Stimulating Hormone 2.29 uIU/mL (0.27-4.20)
--- NOTE | 2023-05-01 10:07 | P.HP_ITS ---
Providers/Chief Complaint 2 Admitting Physician: Pee Aj MD Primary Care Provider: Liam Marte MD Chief Complaint: chest pains,n,v,dizzy History of Present Illness Pernell Dumas is a 38 year old male patient presenting with complaints of chest discomfort, mainly sharp and radiating to his back. He does not know if this woke him from sleep, or he had it upon awakening. He reports he does not believe he has had this type of discomfort before. It was associated with dizziness which he reports he might have had intermittently over the last 2 days. He denies any shortness of breath. This morning he was nauseous as well. No other recent illnesses, fever, cough, blood in stool. Denies any drug use. Reports no prior history of SVT or atrial arrhythmia. Denies any alcohol use. Review of Systems 2 General: Reports: 10 or more systems reviewed and unremarkable except in HPI and below Card: Reports: chest pain Resp: Denies: dyspnea GI: Reports: nausea; Denies: abdominal pain, hematochezia or melena Medications/Allergies Home Medications Medication Instructions Recorded Confirmed Last Taken Type pantoprazole 40 mg tablet,delayed 40 mg PO BID PRN Heartburn 05/01/23 05/01/23 Unknown History release (Protonix) Allergies Allergy/AdvReac Type Severity Reaction Status Date / Time sumatriptan [From Imitrex] AdvReac Mild lock jaw Verified 05/01/23 09:16 PFSH Acute 2 PFSH: Medical History (Updated 05/01/23 @ 10:10 by Pee Aj MD) History of kidney stones Anxiety and depression Chronic migraine without aura Encounter for screening laboratory testing for COVID-19 virus Contact dermatitis GERD (gastroesophageal reflux disease) Surgical History No pertinent past surgical history Family History Other Cancer Social History (Updated 05/01/23 @ 10:10 by Pee Aj MD) Smoking and tobacco/nicotine status: current every day tobacco/nicotine user cigarettes Packs smoked per day: 0.5 Alcohol intake: never Substance/Drug Use: never Marital status: Number of children: 2 Number of grandchildren: 0 Current occupational status: employed Current occupation: [employer] Vitals/I&O/Wt Last Vital Signs Temp 97.5 F L 05/01/23 07:46 Pulse 98 05/01/23 09:30 Resp 20 H 05/01/23 07:46 BP 132/82 05/01/23 09:30 Pulse Ox 95 05/01/23 09:30 O2 Del Method Room Air 05/01/23 09:30 04/30/23 05/01/23 05/01/23 22:59 06:59 14:59 Intake Total 7.542 / 7.542 Balance 7.542 / 7.542 Weight last 48 hrs Weight 88.451 kg Physical Exam 2 Narrative: General exam is white male, in no apparent distress, currently on a Cardizem drip with a heart rate of approximately 100 HEENT: Atraumatic normocephalic. Oropharynx clear. Neck is supple no lymphadenopathy thyromegaly Cardiovascular borderline tachycardic, no murmur, no obvious S3 or S4 Lungs clear Abdomen is soft, no obvious organomegaly. Positive bowel sounds exam is deferred Extremities no sinus clubbing edema, cap refill brisk Skin no rash Neuro no obvious focal deficits Data 05/01/23 07:55 05/01/23 07:55 Other Labs: I have ordered a TSH, and magnesium level INR was normal LFTs normal Troponin less than 6 with repeat pending Urinalysis negative Urine drug screen positive for THC Influenza and COVID testing negative, COVID was by rapid Chest x-ray per my read no infiltrate CTA demonstrated no pulmonary embolism, some diffuse groundglass attenuation Initial EKG demonstrated a rate of 150, atrial tachycardia. It is hard to delineate if this could represent atrial flutter versus SVT. Graham is normal. Nonspecific ST-T wave changes. This is per my read. Second EKG demonstrates sinus rhythm, normal axis. I ordered a TSH and magnesium level which are now done and normal A&P Assessment and plan (1) Sustained SVT: Presentation is most consistent with SVT with EKG carotids, symptomatology. There is no need for any chronic anticoagulation in this patient with his current risk factors. Initiate metoprolol 25 mg now and 25 mg twice daily Echocardiogram Observation Will try to wean off Cardizem drip. If no recurrence consider early discharge after workup is complete. (2) Chest pain: Appears to be secondary to above Awaiting repeat troponins CTA negative for PE (3) Nicotine dependence, cigarettes, with unspecified nicotine-induced disorders: Encourage abstinence Plan Other medical problems as outlined by past medical history Full code Low risk, no need for any anticoagulation Attestations 2 Medical Necessity Statement*: Will need less than 2 midnight stay for evaluation and treatment of SVT Diagnoses Sustained SVT I47.10 Chest pain R07.9 Nicotine dependence, cigarettes, with unspecified nicotine-induced disorders F17.219 Time Spent (min) 48
--- NOTE | 2023-05-01 10:07 | USCV_ITS ---
Pernell Dumas Age: 38 Gender: M : 1985 Exam Date: 05/01/2023 13:32 Ordering Phys: Pee Aj MD Technologist: CT Exam Location: [facility] [place] Indication: arrhythmia BP: 100 / 72 HR: 61 Rhythm: Sinus Technical Quality: Adequate MEASUREMENTS (Male / Female) Normal Values 2D ECHO LVOT Diameter 2.1 cm LV Ejection Fraction MOD 2C 70.3 % LV Ejection Fraction 2C AL 69.5 % LA Diameter 4.2 cm Aorta at Sinotubular Diameter 2.3 cm M-MODE Aortic Annulus Diameter 3.6 cm LA Ao Ratio MM 1.4 MV E Point Septal Separation 0.5 cm DOPPLER AV Peak Velocity 120.0 cm/s LVOT Peak Velocity 97.0 cm/s AV Area Cont Eq vti 3.5 cm squared AV Area Cont Eq pk 2.9 cm squared MV E' Velocity 15.0 cm/s TR Peak Velocity 208.0 cm/s TR Peak Gradient 17.3 mmHg TV Peak E Velocity 78.0 cm/s Right Atrial Pressure 3.0 mmHg Pulmonary Artery Systolic Pressu 20.3 mmHg PV Peak Velocity 103.0 cm/s FINDINGS Left Ventricle Left ventricle is normal in size. LV systolic function is normal with EF of 60-65%. No regional wall abnormalities are seen. Right Ventricle Normal in size and function Right Atrium Normal in size Left Atrium Normal in size Mitral Valve Structurally normal mitral valve. Trace mitral regurgitation. Aortic Valve Structurally normal aortic valve. No significant stenosis or regurgitation. Tricuspid Valve Mild tricuspid regurgitation. Insufficient TR jet to calculate RVSP Pulmonic Valve Not well visualized Pericardium Normal Aorta Normal in size IVC Appears to be normal CONCLUSIONS LV systolic function is normal with EF of 60-65% Trace mitral regurgitation Mild tricuspid regurgitation No comparison studies are available. Aleksey Chandra MD (Electronically Signed) Final Date: 01 May 2023 17:43 S
[2023-05-01 10:17] LABS: Troponin 5 2HR Delta 0.00001 ABS# (0-10)
--- NOTE | 2023-05-01 10:30 | PC.NURSE ---
Pt arrived from A,Ox4. SR on monitor HR-upper 60s. Cardizem drip running at 12.5 mg/hr...
[2023-05-01] MEDS: metoprolol tartrate 25 mg Tablet PO (10:36)
[2023-05-01] MEDS: nicotine 21 mg Patch 1 PATCH TRANSDERMA (11:40)
--- NOTE | 2023-05-01 13:43 | ECG_ITS ---
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 Measurements Intervals [place] Rate: 57 P: 32 AL: 190 QRS: 42 QRSD: 83 T: 41 QT: 364 QTc: 357 Interpretive Statements SINUS BRADYCARDIA Compared to ECG 05/01/2023 09:38:49 Sinus rhythm no longer present Electronically Signed On 05-01-2023 19:37:38 PLASTICS REPAIRER by Pat Morelos M.D. [id number]
[2023-05-01 14:16] LABS: Troponin 5 6HR 6.74 ng/L (0-15); Troponin 5 6HR Delta 0.74001 ng/L (0-12)
[2023-05-01] MEDS: acetaminophen 325 mg Tablet 650 MG PO ×2 (14:19→19:35)
--- NOTE | 2023-05-01 22:04 | PC.NURSE ---
Spoke with regarding patient due for dose of metoprolol 25 mg tonight but hr is running in 50s BP 110/65. Patient states he is just feeling off and says his HR usually runs in 80s so nurse is concerned he may feel strange due to the Bradycardia. said to hold tonights dose of metoprolol.
[2023-05-02] VITALS: TEMP 36.4
[2023-05-02 02:53] VITALS: BP 108/69; PULSE 54; RESP 17; O2SAT 97
[2023-05-02 03:20] VITALS: BP 109/66; PULSE 64; RESP 16; TEMP 36.4; O2SAT 97
[2023-05-02 05:35] VITALS: PULSE 54
[2023-05-02 06:43] LABS: Anion Gap 14.9 (5-19); Blood Urea Nitrogen 10 mg/dL (6-20); Calcium 9.2 mg/dL (8.5-10.5); Carbon Dioxide 23 mmol/L (22-29); Chloride 105 mmol/L (98-107); Glomerular Filtration Rate 108.8 mL/min (90-130); Glucose 86 mg/dL (65-115); Osmolality Calculated 286 mOsm/kg (285-295); Potassium 3.9 mmol/L (3.5-5.1); Sodium 139 mmol/L (136-145)
[2023-05-02 07:42] VITALS: BP 119/72; PULSE 76; RESP 16; TEMP 36.6; O2SAT 98
[2023-05-02 08:04] VITALS: BP 119/72; PULSE 74; RESP 14; TEMP 36.6; O2SAT 98
[2023-05-02] MEDS: nicotine 21 mg Patch 1 PATCH TRANSDERMA (08:32)
[2023-05-02] MEDS: metoprolol succinate ER (24 HR) 25 mg Tablet PO (08:32)
--- NOTE | 2023-05-02 08:34 | P.DS_ITS ---
Discharge Providers Date of Admission: 05/01/23 09:39 Date of Discharge: May 02, 2023 Attending Provider at Admission: Pee Aj MD Attending Provider at Discharge: Pee Aj MD Primary Care Provider: Liam Marte MD Diagnoses at Discharge Discharge Diagnosis (1) Sustained SVT: Status: Acute (2) Chest pain: Status: Acute (3) Nicotine dependence, cigarettes, with unspecified nicotine-induced disorders: Status: Chronic Reason for Visit Reason for Visit: chest pains,n,v,dizzy Discharge Data Studies Completed and Pending Completed Studies During Hospitalization Category Date Time Status CTA chest [CT angio chest PE protcl [id number]] Stat Cat Scan 05/01/23 08:28 Completed XR chest 1V portable [id number] Stat Exams 05/01/23 07:43 Completed CV. echo complete* [id number] Routine Ultrasound 05/01/23 10:07 Completed Laboratory Results WBC 8.63 10^3/uL (3.29-11.43) 05/01/23 07:55 RBC 5.87 10^6/uL (3.85-5.65) H 05/01/23 07:55 Hgb 18.10 g/dL (11.27-16.99) H 05/01/23 07:55 Hct 50.1 % (37-53) 05/01/23 07:55 MCV 85.3 fl (82-101) 05/01/23 07:55 MCH 30.8 pg (27-33) 05/01/23 07:55 MCHC 36.1 g/dL (30-55) 05/01/23 07:55 RDW 11.9 % (12.1-15.1) L 05/01/23 07:55 Plt Count 285 10^3/cmm (157-399) 05/01/23 07:55 MPV 9.9 fL (7.4-10.4) 05/01/23 07:55 Neut % (Auto) 47.7 % 05/01/23 07:55 Lymph % (Auto) 36.0 % 05/01/23 07:55 [place] % (Auto) 11.6 % 05/01/23 07:55 Eos % (Auto) 3.9 % 05/01/23 07:55 Baso % (Auto) 0.6 % 05/01/23 07:55 Neut # (Auto) 4.11 10^3/uL (1.8-7.7) 05/01/23 07:55 Lymph # (Auto) 3.1 10^3/uL (0.8-4.8) 05/01/23 07:55 [place] # (Auto) 1.0 10^3/uL (0.2-0.9) H 05/01/23 07:55 Eos # (Auto) 0.3 10^3/uL (0.0-0.8) 05/01/23 07:55 Baso # (Auto) 0.1 10^3/uL (0.0-0.1) 05/01/23 07:55 Nucleated RBC % (auto) 0 % 05/01/23 07:55 Nucleated RBCs # 0.0 /100WBC 05/01/23 07:55 PT 12.20 SECONDS (12.1-14.9) 05/01/23 07:55 INR 0.88 (0.8-1.2) 05/01/23 07:55 Sodium 139 mmol/L (136-145) 05/02/23 05:19 Potassium 3.9 mmol/L (3.5-5.1) 05/02/23 05:19 Chloride 105 mmol/L (98-107) 05/02/23 05:19 Carbon Dioxide 23 mmol/L (22-29) 05/02/23 05:19 Anion Gap 14.9 (5-19) 05/02/23 05:19 BUN 10 mg/dL (6-20) 05/02/23 05:19 Creatinine 0.8 mg/dL (0.7-1.2) 05/02/23 05:19 GFR Calculation 108.8 mL/min (90-130) 05/02/23 05:19 Glucose 86 mg/dL (65-115) 05/02/23 05:19 Calculated Osmolality 286 mOsm/kg (285-295) 05/02/23 05:19 Calcium 9.2 mg/dL (8.5-10.5) 05/02/23 05:19 Magnesium 2.0 mg/dL (1.7-2.3) 05/01/23 07:55 Total Bilirubin 0.3 mg/dL (0.15-1.2) 05/01/23 07:55 AST 20 U/L (0-40) 05/01/23 07:55 ALT 40 U/L (0-41) 05/01/23 07:55 Alkaline Phosphatase 76 U/L (40-130) 05/01/23 07:55 Troponin T Baseline < 6 ng/L (0-15) 05/01/23 07:55 Troponin T 120 Minute 6.00 ng/L (0-15) 05/01/23 09:50 Delta Troponin T 0.14712 ABS# (0-10) 05/01/23 09:50 Troponin T Hi Sens 6Hr 6.74 ng/L (0-15) 05/01/23 13:42 Troponin T Hi Sens 6Hr Delta 0.74435 ng/L (0-12) 05/01/23 13:42 NT-Pro-B Natriuret Pep < 36 pg/mL (0-125) 05/01/23 07:55 Total Protein 8.4 g/dL (6.6-8.7) 05/01/23 07:55 Albumin 4.8 g/dL (3.5-5.2) 05/01/23 07:55 Globulin 3.6 g/dL (1.3-4.6) 05/01/23 07:55 TSH 2.29 uIU/mL (0.27-4.20) 05/01/23 07:55 Urine Color Straw (Yellow) 05/01/23 09:32 Urine Appearance Clear (CLEAR) 05/01/23 09:32 Urine pH 6.5 (5-7) 05/01/23 09:32 Ur Specific [place] 1.010 (1.005-1.030) 05/01/23 09:32 Urine Protein Neg (Negative) 05/01/23 09:32 Urine Glucose (UA) Norm (Normal) 05/01/23 09:32 Urine Ketones Negative (Negative) 05/01/23 09:32 Urine Blood Neg (Negative) 05/01/23 09:32 Urine Nitrate Negative (Negative) 05/01/23 09:32 Urine Bilirubin Neg (Negative) 05/01/23 09:32 Urine Urobilinogen Neg mg/dL (Negative) 05/01/23 09:32 Ur Leukocyte Esterase Negative (Negative) 05/01/23 09:32 Urine Opiates Screen Negative ng/mL (Negative) 05/01/23 09:32 Ur Barbiturates Screen Negative ng/mL (Negative) 05/01/23 09:32 Ur Phencyclidine Scrn Negative ng/mL (Negative) 05/01/23 09:32 Ur Amphetamines Screen Negative ng/mL (Negative) 05/01/23 09:32 U Benzodiazepines Scrn Negative ng/mL (Negative) 05/01/23 09:32 Urine Cocaine Screen Negative ng/mL (Negative) 05/01/23 09:32 U Marijuana (THC) Screen Positive ng/mL (Negative) H 05/01/23 09:32 Influenza Type A Ag negative (Negative) 05/01/23 08:07 Influenza Type B Ag negative (Negative) 05/01/23 08:07 SARS-CoV-2 Ag (Rapid) negative (Negative) 05/01/23 08:07 Vitals Last Vital Signs Temp 97.8 F 05/02/23 08:04 Pulse 74 05/02/23 08:04 Resp 14 05/02/23 08:04 BP 119/72 05/02/23 08:04 Pulse Ox 98 05/02/23 08:04 O2 Del Method Room Air 05/02/23 07:42 Discharge Plan Discharge Patient Disposition: Home Condition: Stable Prescriptions: New metoprolol succinate 25 mg Tablet Extended Release 24 Hr 25 mg PO DAILY Qty: 30 0RF Continued Protonix 40 mg tablet,delayed release (DR/EC) 40 mg PO BID PRN (Reason: Heartburn) Discharge Orders: Discharge Order (Routine); Ordered 05/02/23 Ordered By: Pee Aj Referrals: Liam Marte MD [Primary Care Provider] - 4-7 days Discharge Diet: Regular Discharge Activity: Increase activity as tolerated Patient Instructions: Opioid Safety Activity Restrictions/Additional Instructions: Fluids Take medicine as prescribed Stop smoking Arrange follow-up with cardiology clinic in approximately 2 weeks Return for any concerns Coding Level of Care Code Acute Code for Chg Fwd Diagnoses Sustained SVT I47.10 Chest pain R07.9 Nicotine dependence, cigarettes, with unspecified nicotine-induced disorders F17.219
--- NOTE | 2023-05-02 08:56 | PC.NURSE ---
Pt ambulating x2 down hallways HR on telemetry while walking maintains between upper 60s to 70s, SR.. Pt denies any dizziness, minimal lightheadedness.
--- NOTE | 2023-05-02 09:20 | PM.DCS ---
Discharge Providers Date of Admission: 05/01/23 09:39 Date of Discharge: May 02, 2023 Attending Provider at Admission: Pee Aj MD Attending Provider at Discharge: Pee Aj MD Primary Care Provider: Liam Marte MD Diagnoses at Discharge Discharge Diagnosis (1) Sustained SVT: Status: Acute (2) Chest pain: Status: Acute (3) Nicotine dependence, cigarettes, with unspecified nicotine-induced disorders: Status: Chronic Reason for Visit Reason for Visit: chest pains,n,v,dizzy Hospital Course Hospital Course Pernell is a 38-year-old white male with no prior history of cardiac arrhythmia presented to the emergency department with palpitations, elevated heart rate consistent with SVT on EKG. He was started on a Cardizem drip, and transition to metoprolol. With this the heart rate came down he was able to wean off Cardizem, and he came into sinus rhythm. Overnight he was observed and was slightly bradycardic and Toprol dose was changed to 25 mg XL daily. Blood pressure was within normal limits. Troponins were negative. Echocardiogram demonstrated preserved EF, no significant wall motion abnormalities. TSH and electrolytes were normal. CTA done in the emergency department demonstrated no evidence of pulmonary embolism. With significant improvement, it was thought the patient could be discharged home with follow-up with cardiology and his primary care provider. He was able to ask questions and agreed with plan. Physical Exam Narrative: General exam no distress Neck is supple Cardiovascular regular rate and rhythm without murmur Lungs clear Abdomen is soft Extremities no cyanosis clubbing or edema, cap refill brisk Discharge Data Studies Completed and Pending Completed Studies During Hospitalization Category Date Time Status CTA chest [CT angio chest PE protcl [id number]] Stat Cat Scan 05/01/23 08:28 Completed XR chest 1V portable [id number] Stat Exams 05/01/23 07:43 Completed CV. echo complete* [id number] Routine Ultrasound 05/01/23 10:07 Completed Laboratory Results WBC 8.63 10^3/uL (3.29-11.43) 05/01/23 07:55 RBC 5.87 10^6/uL (3.85-5.65) H 05/01/23 07:55 Hgb 18.10 g/dL (11.27-16.99) H 05/01/23 07:55 Hct 50.1 % (37-53) 05/01/23 07:55 MCV 85.3 fl (82-101) 05/01/23 07:55 MCH 30.8 pg (27-33) 05/01/23 07:55 MCHC 36.1 g/dL (30-55) 05/01/23 07:55 RDW 11.9 % (12.1-15.1) L 05/01/23 07:55 Plt Count 285 10^3/cmm (157-399) 05/01/23 07:55 MPV 9.9 fL (7.4-10.4) 05/01/23 07:55 Neut % (Auto) 47.7 % 05/01/23 07:55 Lymph % (Auto) 36.0 % 05/01/23 07:55 [place] % (Auto) 11.6 % 05/01/23 07:55 Eos % (Auto) 3.9 % 05/01/23 07:55 Baso % (Auto) 0.6 % 05/01/23 07:55 Neut # (Auto) 4.11 10^3/uL (1.8-7.7) 05/01/23 07:55 Lymph # (Auto) 3.1 10^3/uL (0.8-4.8) 05/01/23 07:55 [place] # (Auto) 1.0 10^3/uL (0.2-0.9) H 05/01/23 07:55 Eos # (Auto) 0.3 10^3/uL (0.0-0.8) 05/01/23 07:55 Baso # (Auto) 0.1 10^3/uL (0.0-0.1) 05/01/23 07:55 Nucleated RBC % (auto) 0 % 05/01/23 07:55 Nucleated RBCs # 0.0 /100WBC 05/01/23 07:55 PT 12.20 SECONDS (12.1-14.9) 05/01/23 07:55 INR 0.88 (0.8-1.2) 05/01/23 07:55 Sodium 139 mmol/L (136-145) 05/02/23 05:19 Potassium 3.9 mmol/L (3.5-5.1) 05/02/23 05:19 Chloride 105 mmol/L (98-107) 05/02/23 05:19 Carbon Dioxide 23 mmol/L (22-29) 05/02/23 05:19 Anion Gap 14.9 (5-19) 05/02/23 05:19 BUN 10 mg/dL (6-20) 05/02/23 05:19 Creatinine 0.8 mg/dL (0.7-1.2) 05/02/23 05:19 GFR Calculation 108.8 mL/min (90-130) 05/02/23 05:19 Glucose 86 mg/dL (65-115) 05/02/23 05:19 Calculated Osmolality 286 mOsm/kg (285-295) 05/02/23 05:19 Calcium 9.2 mg/dL (8.5-10.5) 05/02/23 05:19 Magnesium 2.0 mg/dL (1.7-2.3) 05/01/23 07:55 Total Bilirubin 0.3 mg/dL (0.15-1.2) 05/01/23 07:55 AST 20 U/L (0-40) 05/01/23 07:55 ALT 40 U/L (0-41) 05/01/23 07:55 Alkaline Phosphatase 76 U/L (40-130) 05/01/23 07:55 Troponin T Baseline < 6 ng/L (0-15) 05/01/23 07:55 Troponin T 120 Minute 6.00 ng/L (0-15) 05/01/23 09:50 Delta Troponin T 0.89056 ABS# (0-10) 05/01/23 09:50 Troponin T Hi Sens 6Hr 6.74 ng/L (0-15) 05/01/23 13:42 Troponin T Hi Sens 6Hr Delta 0.21906 ng/L (0-12) 05/01/23 13:42 NT-Pro-B Natriuret Pep < 36 pg/mL (0-125) 05/01/23 07:55 Total Protein 8.4 g/dL (6.6-8.7) 05/01/23 07:55 Albumin 4.8 g/dL (3.5-5.2) 05/01/23 07:55 Globulin 3.6 g/dL (1.3-4.6) 05/01/23 07:55 TSH 2.29 uIU/mL (0.27-4.20) 05/01/23 07:55 Urine Color Straw (Yellow) 05/01/23 09:32 Urine Appearance Clear (CLEAR) 05/01/23 09:32 Urine pH 6.5 (5-7) 05/01/23 09:32 Ur Specific [place] 1.010 (1.005-1.030) 05/01/23 09:32 Urine Protein Neg (Negative) 05/01/23 09:32 Urine Glucose (UA) Norm (Normal) 05/01/23 09:32 Urine Ketones Negative (Negative) 05/01/23 09:32 Urine Blood Neg (Negative) 05/01/23 09:32 Urine Nitrate Negative (Negative) 05/01/23 09:32 Urine Bilirubin Neg (Negative) 05/01/23 09:32 Urine Urobilinogen Neg mg/dL (Negative) 05/01/23 09:32 Ur Leukocyte Esterase Negative (Negative) 05/01/23 09:32 Urine Opiates Screen Negative ng/mL (Negative) 05/01/23 09:32 Ur Barbiturates Screen Negative ng/mL (Negative) 05/01/23 09:32 Ur Phencyclidine Scrn Negative ng/mL (Negative) 05/01/23 09:32 Ur Amphetamines Screen Negative ng/mL (Negative) 05/01/23 09:32 U Benzodiazepines Scrn Negative ng/mL (Negative) 05/01/23 09:32 Urine Cocaine Screen Negative ng/mL (Negative) 05/01/23 09:32 U Marijuana (THC) Screen Positive ng/mL (Negative) H 05/01/23 09:32 Influenza Type A Ag negative (Negative) 05/01/23 08:07 Influenza Type B Ag negative (Negative) 05/01/23 08:07 SARS-CoV-2 Ag (Rapid) negative (Negative) 05/01/23 08:07 Vitals Last Vital Signs Temp 97.8 F 05/02/23 08:04 Pulse 74 05/02/23 08:04 Resp 14 05/02/23 08:04 BP 119/72 05/02/23 08:04 Pulse Ox 98 05/02/23 08:04 O2 Del Method Room Air 05/02/23 07:42 Discharge Plan Discharge Patient Disposition: Home Condition: Stable Prescriptions: New metoprolol succinate 25 mg Tablet Extended Release 24 Hr 25 mg PO DAILY Qty: 30 0RF Continued Protonix 40 mg tablet,delayed release (DR/EC) 40 mg PO BID PRN (Reason: Heartburn) Discharge Orders: Discharge Order (Routine); Ordered 05/02/23 Ordered By: Pee Aj Referrals: Liam Marte MD [Primary Care Provider] - 4-7 days Zahra Toure FNP [Nurse Practitioner] - Discharge Diet: Regular Discharge Activity: Increase activity as tolerated Patient Instructions: Metoprolol (By mouth) (Lopressor, Toprol XL), Supraventricular Tachycardia (DC), How to Stop Smoking (DC), Bradycardia (DC), Dizziness (GEN), Fall Prevention (DC), Opioid Safety Activity Restrictions/Additional Instructions: Fluids Take medicine as prescribed Stop smoking Arrange follow-up with cardiology clinic in approximately 2 weeks Return for any concerns Discharge Attestations Time Spent in Discharge Care*: greater than 30 min Quality Metrics Clinical Quality Measures [ No reported AMI, CVA or VTE this stay] Coding Level of Care Code 82468 Total time (in minutes) for Discharge: 36 Diagnoses Sustained SVT I47.10 Chest pain R07.9 Nicotine dependence, cigarettes, with unspecified nicotine-induced disorders F17.219
--- NOTE | 2023-05-02 09:52 | PC.CHAP ---
Pastoral Care Encounter/Spiritual Assessment Type of Contact [] Declined customer relations assistant visit [] Patient/Family/Request visit [] Outpatient visit [] Follow-up visit [] Physician referral [] Code/Alert [x] Routine visit [] Staff referral [] Actively dying [] Patient sleeping [x] Family support [] [] Out of room [] Palliative care [] [] Receiving care in room [] Pre-surgical visit [] Trauma [] Long length of stay [] ICU visit [] Other: Relational/Emotional Strength [x] Patient feels connected with others/family/visitors/staff [] Distress [] Loneliness/isolation [] Abandonment Spirituality of Patient [x] Person of [place] [] Attends Anabaptist of their [place] [x] Believes in Prayer [] Reads Bible or Confucianism materials [] There are Spiritual issues to be addressed Adzing And Boring Machine Operator Interventions [x] Prayer [x] Active listening [] Non-anxious presence [x] Spiritual/emotional support [] Crisis/trauma care [] Spiritual counseling [] Bereavement support [] Provided bereavement packet [] Provided Bible/devotional materials [] Provided toy/stuffed animal, coloring book to patient or family member [] Provided Communion [] Anointing/[place] [] Salvation [x] Completed spiritual assessment [] Other: Impact on Illness or Injury [] Angry [] Fearful [] Anxious [] Often cries [] Exhaustion [] Unable to work [] Unable to attend latter-day [] Unable to walk/stand [] Unable to read [] Unable to drive [] Unable to eat/drink [] Unable to sleep [] Unable to be with family [] Patient intubated [] Other: Summary Time spent with patient 10 min
== END 2023-05-02 10:37 | disposition home or self-care (01) ==
LOC: ER 09:31 → CSU 10:15
PROVIDERS: Admitting Provider Internal Medicine; Emergency Provider Internal Medicine; PCP Family Medicine Adult Medicine; Visit Provider Internal Medicine
DX: I47.10 Supraventricular tachycardia, unspecified (principal); R07.9 Chest pain, unspecified; F17.219 Nicotine dependence, cigarettes, with unspecified nicotine-induced disorders; K21.9 Gastro-esophageal reflux disease without esophagitis
CPT/HCPCS: 36415; 71045; 71275; 80048; 80053; 80306; 81003; 83735; 83880; 84443; 84484; 85025; 85610; 87426; 87804; 93005; 93306; 96365; 96375; 96376; 99285; G0378; J2405; J3490; Q9967